=== PATIENT | female | born 1975 | race Caucasian/White ===

== ENCOUNTER 2017-10-10 00:55 | Emergency (ER) | payer SELFPAY ==
[~2017-10-10] VITALS: Ht 170.2 cm; Wt 112.2 kg
[~2017-10-10 00:55] MED LIST: MEDR5TAB PO
[2017-10-10 01:04] VITALS: BP 130/82
--- NOTE | 2017-10-10 01:08 | NUR ---
PT AMBULATED TO ER CHAIR A
[2017-10-10 01:10] VITALS: BP 130/82
--- NOTE | 2017-10-10 01:10 | NUR ---
PATIENT PRESENTS TO ED WITH C/O SOB/DRY COUGH/NASAL CONGESTION/BODY ACHES. PT DENIES N/V/D; SKIN IS PINK/WARM/DRY; AAOX4 WITH EVEN AND STEADY GAIT; LUNGS CLEAR BL; HR EVEN AND REGULAR; PT DENIES FEVER OR CP AT THIS TIME; PATIENT STATES PAIN OF 2/10 AT THIS TIME; VSS; PATIENT POSITIONED FOR COMFORT; HOB ELEVATED; BEDRAILS UP X2; BED DOWN. ER MD MADE AWARE OF PT STATUS.
[2017-10-10] MEDS ORDERED: predniSONE 20 MG TAB PO ONE (02:30)
[2017-10-10] MEDS ORDERED: IPRATROPIUM 0.02% 0.5 MG/2.5 ML NEBU INH ONE (02:30)
[2017-10-10] MEDS ORDERED: ALBUTEROL 0.083% 2.5 MG/3 ML NEBU INH ONE (02:30)
--- NOTE | 2017-10-10 02:34 | NUR ---
RT WAS CALLED FOR TREATMENT
--- NOTE | 2017-10-10 02:47 | NUR ---
Respiratory Therapist at bedside for respiratory intervention. Patient tolerated .
--- NOTE | 2017-10-10 03:12 | NUR ---
Patient discharged with v/s stable. Written and verbal after care instructions given and explained. Patient alert, oriented and verbalized understanding of instructions. Ambulatory with steady gait. All questions addressed prior to discharge. ID band removed. Patient advised to follow up with PMD. Rx of ROBITUSSIN, ALBUTEROL, ZITHROMAX AND PREDNISONE given. Patient educated on indication of medication including possible reaction and side effects. Opportunity to ask questions provided and answered.
== END 2017-10-10 03:12 | disposition home or self-care (01) ==
LOC: MED 00:55
DX: J20.9 Acute bronchitis, unspecified (principal); Z79.899 Other long term (current) drug therapy
CPT/HCPCS: 94640; 99283; J7512; J7613; J7644